=== PATIENT | male | born 1945 | race Caucasian/White ===

== ENCOUNTER 2017-09-05 09:46 | Emergency (ER) | payer OTHER ==
[~2017-09-05] VITALS: Ht 175.3 cm; Wt 91.0 kg
[2017-09-05] MEDS ORDERED: IOHEXOL 350 MG/ML 10 ML VIAL (for RAD DIAG) IVCONTRAST ONE (09:47)
[2017-09-05 10:08] VITALS: BP 166/95; PULSE 68; RESP 16; TEMP 98.5; O2SAT 97
[2017-09-05] MEDS ORDERED: OMEP20TA93 PO (10:39)
[2017-09-05] MEDS ORDERED: ATOR20TA15 PO (10:39)
[2017-09-05] MEDS ORDERED: ASPI81CH6 CHEW (10:39)
[2017-09-05] MEDS ORDERED: SODIUM CHLORIDE 0.9% FLUSH 10 ML FLUSH IV FLUSH PRN (10:45)
--- NOTE | 2017-09-05 10:58 | PD ---
HPI Chief Complaint: GI Complaint Time Seen by Provider: 10:42 Travel History International Travel<30 days: Yes Contact w/Intl Traveler<30days: Yes Name of Country Traveled to: [place] Traveled to known affect area: No History of Present Illness HPI Patient presents to the emergency department with right upper quadrant pain that began on Saturday. New onset. Pain is described as being alleviated with Advil, aggravated by lying on the right side and deep inspiration,it's been constant, nonradiating, no pain currently. He denies fever, chills, cough, chest pain, nausea, vomiting, diarrhea. PFSH Past Medical History High Cholesterol: Yes Chest Pain: Yes Hepatitis: Yes (hep c) Tetanus Vaccination: < 5 Years Influenza Vaccination: Yes Past Surgical History Abdominal Surgery: Yes (abdominal abscess removed) Coronary Stent: Yes Other Surgery: Yes (zygomatic arch broken) Social History Alcohol Use: Yes Tobacco Use: No Substance Use: No Allergies-Medications (Allergen,Severity, Reaction): Coded Allergies: No Known Allergies (Unverified , 09/05/17) Reported Meds & Prescriptions Reported Meds & Active Scripts Active Reported Aspirin Low Dose (Aspirin) 81 Mg Chew 81 Mg CHEW DAILY Atorvastatin (Atorvastatin Calcium) 20 Mg Tab 20 Mg PO HS Omeprazole 20 Mg Tab 20 Mg PO DAILY Review of Systems Except as stated in HPI: all other systems reviewed are Neg Physical Exam Narrative GENERAL: No acute distress. SKIN: Focused skin assessment warm/dry. HEAD: Atraumatic. Normocephalic. EYES: Extraocular muscles intact bilaterally. No scleral icterus. No injection or drainage. ENT: No nasal bleeding or discharge. Mucous membranes pink and moist. NECK: Trachea midline. No JVD. CARDIOVASCULAR: Regular rate and rhythm. No murmur appreciated. RESPIRATORY: No accessory muscle use. Clear to auscultation. Breath sounds equal bilaterally. GASTROINTESTINAL: Abdomen soft, non-tender, nondistended. MUSCULOSKELETAL: No obvious deformities. No clubbing. No cyanosis. No edema. NEUROLOGICAL: Awake and alert. No obvious cranial nerve deficits. Motor grossly within normal limits. Normal speech. PSYCHIATRIC: Appropriate mood and affect; insight and judgment normal. Data Data Last Documented VS Vital Signs Date Time Temp Pulse Resp B/P (MAP) Pulse Ox O2 Delivery O2 Flow Rate FiO2 09/05/17 11:20 61 18 187/95 (125) 98 Room Air 09/05/17 10:08 98.5 Orders Orders Electrocardiogram (09/05/17 ) Complete Blood Count With Diff (09/05/17 10:10) Lipase (09/05/17 10:10) Urinalysis - C+S If Indicated (09/05/17 10:10) Comprehensive Metabolic Panel (09/05/17 10:43) Prothrombin Time / Inr (Pt) (09/05/17 10:43) Act Partial Throm Time (Ptt) (09/05/17 10:43) Us Abdomen Gallbladder (09/05/17 ) Iv Access Insert/Monitor (09/05/17 10:43) Ecg Monitoring (09/05/17 10:43) Oximetry (09/05/17 10:43) Sodium Chloride 0.9% Flush (Ns Flush) (09/05/17 10:45) Ct Abd/Pel W Iv Contrast(Rout) (09/05/17 12:23) Iohexol 350 Inj (Omnipaque 350 Inj) (09/05/17 09:47) Radiology Film Requests (09/05/17 ) Labs Laboratory Tests Test 09/05/17 11:15 09/05/17 11:30 09/05/17 14:00 White Blood Count 4.7 TH/MM3 Red Blood Count 5.06 MIL/MM3 Hemoglobin 15.0 GM/DL Hematocrit 44.5 % Mean Corpuscular Volume 87.9 FL Mean Corpuscular Hemoglobin 29.7 PG Mean Corpuscular Hemoglobin Concent 33.7 % Red Cell Distribution Width 12.8 % Platelet Count 201 TH/MM3 Mean Platelet Volume 8.6 FL Neutrophils (%) (Auto) 46.8 % Lymphocytes (%) (Auto) 39.2 % Monocytes (%) (Auto) 11.0 % Eosinophils (%) (Auto) 2.4 % Basophils (%) (Auto) 0.6 % Neutrophils # (Auto) 2.2 TH/MM3 Lymphocytes # (Auto) 1.8 TH/MM3 Monocytes # (Auto) 0.5 TH/MM3 Eosinophils # (Auto) 0.1 TH/MM3 Basophils # (Auto) 0.0 TH/MM3 CBC Comment DIFF FINAL Differential Comment Blood Urea Nitrogen 25 MG/DL Creatinine 1.13 MG/DL Random Glucose 93 MG/DL Total Protein 8.7 GM/DL Albumin 4.2 GM/DL Calcium Level 9.8 MG/DL Alkaline Phosphatase 73 U/L Aspartate Amino Transf (AST/SGOT) 23 U/L Alanine Aminotransferase (ALT/SGPT) 28 U/L Total Bilirubin 0.6 MG/DL Sodium Level 137 MEQ/L Potassium Level 4.1 MEQ/L Chloride Level 104 MEQ/L Carbon Dioxide Level 22.4 MEQ/L Anion Gap 11 MEQ/L Estimat Glomerular Filtration Rate 64 ML/MIN Lipase 110 U/L Prothrombin Time 10.6 SEC Prothromb Time International Ratio 1.0 RATIO Activated Partial Thromboplast Time 28.4 SEC MDM Medical Decision Making Medical Screen Exam Complete: Yes Emergency Medical Condition: Yes Interpretation(s) CT scan: FINDINGS: Lower Lungs: The visualized lower lungs are clear. Liver: The liver has a homogeneous density with the exception of a prominent mass towards the dome medial segment left lobe measuring 7.6 x 5.7 cm. This mass does enhance with contrast and is somewhat heterogeneous. No other definite lesions.. There is no dilation of the biliary tree. Spleen: Homogeneous density without enlargement. Pancreas: Unremarkable without mass or calcification. Kidneys: Normal in size and shape. No evidence of mass or hydronephrosis. Adrenal Glands: Unremarkable. Aorta: The aorta and proximal iliac vessels are grossly unremarkable without aneurysmal dilation. Bowel/Mesentery: There is extensive diverticulosis of the descending and sigmoid colon without diverticulitis. Abdominal Wall: Intact. Retroperitoneum: No evidence of adenopathy in the retrocrural, para-aortic, or deep pelvic regions. Bladder: Contours are smooth. Reproductive Organs: No abnormal masses or calcifications seen. Inguinal: The inguinal region is unremarkable without evidence of adenopathy. Bony Structures: Unremarkable. CONCLUSION: 1. Large heterogeneous mass in the dome of the liver nonspecific but given patient's history of hepatitis C, hepatic carcinoma should be excluded. Contrasted MRI of the abdomen recommended. 2. No acute inflammatory process. 3. Diverticulosis without diverticulitis. ECG (doen in triage): Rate 66, sinus rhythm, no ST elevation or depression Labs: Lipase CBC within normal limits. BUN increased. Last Impressions Gall Bladder Ultrasound 09/05/17 0000 Signed Impressions: CONCLUSION: 1. Liver slightly heterogeneous could be related to hepatocellular dysfunction . 2. No cholelithiasis. Differential Diagnosis Cholecystitis, pancreatitis, peptic ulcer disease, cholelithiasis, hepatitis Narrative Course Patient presents to the emergency department complaining of right upper quadrant pain. Patient placed on cafeteria monitor, IV access obtained, labs and ultrasound ordered. Physician Communication Physician Communication Called [place] call center to speak with the doctor covering for the patient's PCP, Dr. Fernandez (?) as she's not in the office today. Received no call back. 1407: Spoke to Dr. Howard who was covering, advised to have the patient come to see his primary care doctor on Saturday with medical records and a copy of the imaging. 1439: Patient given copy of CT and MRI results and a CD was ordered of CT scan. Diagnosis Primary Impression: Abdominal pain Qualified Codes: R10.11 - Right upper quadrant pain Patient Instructions: Abdominal Pain (ED), General Instructions Additional Instructions: 1. Followup with primary care doctor on Saturday with imaging results and copy of CT scan. 2. Return to ER immediately for fever, vomiting, abdominal pain, or for any new/worrisome/worsening symptoms. Disposition: DISCHARGE HOME Condition: Stable Evon Ramirez MD September 05, 2017 10:58
[2017-09-05 11:20] VITALS: BP 187/95; PULSE 61; RESP 18; O2SAT 98
[2017-09-05 11:33] LABS: AUTOMATED NEUTROPHIL # 2.2 TH/MM3 (1.8-7.7); BASOPHIL % 0.6 % (0.0-2.0); EOSINOPHIL # 0.1 TH/MM3 (0-0.4); EOSINOPHIL % 2.4 % (0.0-4.0); HEMATOCRIT 44.5 % (39.0-51.0); LYMPH % 39.2 % (9.0-44.0); LYMPHOCYTE # 1.8 TH/MM3 (1.0-4.8); MEAN CELL VOLUME 87.9 FL (80.0-100.0); MEAN CORPUSCULAR HEMOGLOBIN 29.7 PG (27.0-34.0); MEAN CORPUSCULAR HGB CONC 33.7 % (32.0-36.0); MEAN PLATELET VOLUME 8.6 FL (7.0-11.0); MONOCYTE # 0.5 TH/MM3 (0-0.9); NEUT % 46.8 % (16.0-70.0); PLATELET COUNT 201 TH/MM3 (150-450); RED BLOOD COUNT 5.06 MIL/MM3 (4.50-5.90); RED CELL DISTRIBUTION WIDTH 12.8 % (11.6-17.2); WHITE BLOOD COUNT 4.7 TH/MM3 (4.0-11.0)
[2017-09-05 11:45] LABS: PROTHROMBIN TIME - PATIENT 10.6 SEC (9.8-11.6)
[2017-09-05 11:57] LABS: ALBUMIN 4.2 GM/DL (3.4-5.0); AST (GOT) 23 U/L (15-37); BICARBONATE 22.4 MEQ/L (21.0-32.0); BLOOD UREA NITROGEN 25 MG/DL (7-18); CALCIUM 9.8 MG/DL (8.5-10.1); CHLORIDE 104 MEQ/L (98-107); CREATININE 1.13 MG/DL (0.60-1.30); GLOMERULAR FILTRATION RATE 64 ML/MIN (>89); GLUCOSE,RANDOM 93 MG/DL (74-106); SODIUM (NA) 137 MEQ/L (136-145)
[2017-09-05 11:58] LABS: ALT (GPT) 28 U/L (12-78)
[2017-09-05 12:00] LABS: ALKALINE PHOSPHATASE 73 U/L (45-117); TOTAL BILIRUBIN ADULT 0.6 MG/DL (0.2-1.0); TOTAL PROTEIN 8.7 GM/DL (6.4-8.2)
--- NOTE | 2017-09-05 12:03 | RADRPT ---
EXAM DATE: 09/05/2017 11:49 AM EDT AGE/SEX: 72 years / Male INDICATIONS: Right upper quadrant pain. CLINICAL DATA: This is the patient's initial encounter. Patient reports that signs and/or symptoms h ave been present for 4 - 6 days and indicates a pain score of 3/10. MEDICAL/SURGICAL HISTORY: Hypercholesterolemia. Hepatitis C. Chest pain. Coronary artery stent. A bdominal abscess removed. Surgery for broken zygomatic arch. COMPARISON: No prior [facility] exams available for comparison MEASUREMENTS (cm x cm x cm): Liver:__ 13.8 cm length Common Bile Duct:__ 5mm FINDINGS: Liver: Coarse echotexture suggesting fatty change or diffuse hepatocellular process. Portal Vein: Hepatopedal flow seen in portal vein. Common Duct: No intraluminal mass or stone visualized. Gallbladder: No gallbladder wall thickening, calculi or pericholecystic fluid Pancreas: Not well visualized. Right Kidney: No mass or hydronephrosis Other: None. CONCLUSION: 1. Liver slightly heterogeneous could be related to hepatocellular dysfunction. 2. No cholelithiasis. Electronically signed by: Andrea Serrano MD 09/05/2017 12:02 PM EDT
--- NOTE | 2017-09-05 13:23 | RADRPT ---
EXAM DATE: 09/05/2017 1:10 PM EDT AGE/SEX: 72 years / Male INDICATIONS: Right upper quadrant abdominal pain. CLINICAL DATA: This is the patient's initial encounter. Patient reports that signs and symptoms have been present for 3 days and indicates a pain score of 3/10. MEDICAL/SURGICAL HISTORY: Cardiovascular disease. Hepatitis C. . abdominal abscess removed. ORAL CONTRAST: No oral contrast ingested. RADIATION DOSE: 94 CTDI (mGy) COMPARISON: [facility] [place], [place] ABDOMEN - GALLBLADDER, 09/05/2017. . TECHNIQUE: Multiple contiguous axial images were obtained through the abdomen and pelvis following b olus infusion of 94 ml Omnipaque 350 (iohexol) nonionic water-soluble contrast as a single exam dos e. No oral contrast ingested. Using automated exposure control and adjustment of the mA and/or kV ac cording to patient size, the radiation dose was kept as low as reasonably achievable to obtain optima l diagnostic quality images. FINDINGS: Lower Lungs: The visualized lower lungs are clear. Liver: The liver has a homogeneous density with the exception of a prominent mass towards the dome me dial segment left lobe measuring 7.6 x 5.7 cm. This mass does enhance with contrast and is somewhat h eterogeneous. No other definite lesions.. There is no dilation of the biliary tree. Spleen: Homogeneous density without enlargement. Pancreas: Unremarkable without mass or calcification. Kidneys: Normal in size and shape. No evidence of mass or hydronephrosis. Adrenal Glands: Unremarkable. Aorta: The aorta and proximal iliac vessels are grossly unremarkable without aneurysmal dilation. Bowel/Mesentery: There is extensive diverticulosis of the descending and sigmoid colon without diver ticulitis. Abdominal Wall: Intact. Retroperitoneum: No evidence of adenopathy in the retrocrural, para-aortic, or deep pelvic regions. Bladder: Contours are smooth. Reproductive Organs: No abnormal masses or calcifications seen. Inguinal: The inguinal region is unremarkable without evidence of adenopathy. Bony Structures: Unremarkable. CONCLUSION: 1. Large heterogeneous mass in the dome of the liver nonspecific but given patient's history of hepa titis C, hepatic carcinoma should be excluded. Contrasted MRI of the abdomen recommended. 2. No acute inflammatory process. 3. Diverticulosis without diverticulitis. Electronically signed by: Andrea Serrano MD 09/05/2017 1:22 PM EDT
[2017-09-05 14:00] VITALS: BP 179/97; PULSE 68; RESP 17; O2SAT 98
--- NOTE | 2017-09-05 14:43 | EKG ---
Date Performed: 09/05/2017 Time Performed: 10:16:33 PTAGE: 72 years EKG: Sinus rhythm NORMAL ECG INTERPRETATION BASED ON A DEFAULT AGE OF 42 YEARS NO PREVIOUS TRACING DOCTOR: Lucien Ryder Interpretating Date/Time 09/05/2017 14:42:24
[2017-09-05 14:50] LABS: BILIRUBIN, URINE NEG (NEG); BLOOD, URINE NEG (NEG); GLUCOSE,URINE NEG (NEG); KETONE, URINE 10 mg/dL (NEG); MUCUS URINE FEW /lpf (OCC); NITRITE,URINE NEG (NEG); URINE COLOR YELLOW (YELLW/STRAW); URINE LEUKOCYTE ESTERASE NEG (NEG)
[2017-09-05 16:05] VITALS: BP 186/90; PULSE 60; RESP 17; O2SAT 97
== END 2017-09-05 16:05 | disposition home or self-care (01) ==
LOC: NEPD 09:46
DX: R10.11 Right upper quadrant pain (principal); E78.00 Pure hypercholesterolemia, unspecified
CPT/HCPCS: 74177; 76705; 80053; 81001; 83690; 85025; 85610; 85730; 93005; 99285; Q9967